=== PATIENT | male | born 1995 | race Hispanic/Latino ===

== ENCOUNTER 2017-12-31 00:13 | Emergency (ER) | payer SELFPAY ==
[~2017-12-31] VITALS: Ht 165.1 cm; Wt 81.8 kg
[2017-12-31] MEDS ORDERED: KEFLEX500 M1 PO (00:42)
[2017-12-31 01:00] VITALS: BP 133/91
== END 2017-12-31 01:06 | disposition home or self-care (01) | DRG 605 ==
LOC: ED 00:13
DX: S81.011A Laceration without foreign body, right knee, initial encounter (principal); S81.012A Laceration without foreign body, left knee, initial encounter; S60.512A Abrasion of left hand, initial encounter; S60.511A Abrasion of right hand, initial encounter; W31.89XA Contact with other specified machinery, initial encounter; Y92.89 Other specified places as the place of occurrence of the external cause; Y99.0 Civilian activity done for income or pay